=== PATIENT | male | born 2000 | race Caucasian/White ===

== ENCOUNTER 2024-04-18 21:19 | Emergency (ER) | payer SELFPAY ==
[2024-04-18] MEDS: Sodium Chloride 0.9% 2.5 ML Syringe FLUSH PRN (21:39)
[2024-04-18] MEDS: Sodium Chloride 0.9% 1,000 ML IV ONE ×2 (21:39→22:43)
[2024-04-18] MEDS: Sodium Chloride 0.9% 10 ML Syringe FLUSH PRN (21:40)
[2024-04-18 21:41] LABS: BASOPHILS ABSOLUTE AUTO 0.08 K/uL (0.00-0.20); BASOPHILS PERCENT AUTO 0.6 % (0.0-1.0); EOSINOPHILS ABSOLUTE AUTO 0.11 K/uL (0.00-0.45); EOSINOPHILS PERCENT AUTO 0.8 % (0.0-6.0); HEMATOCRIT 44.3 % (42.0-52.0); HEMOGLOBIN 15.5 g/dL (14.0-18.0); IMMATURE GRAN ABSOLUTE AUTO 0.14 K/uL (0.00-0.05); IMMATURE GRAN PERCENT AUTO 1.1 % (0.0-0.4); LYMPHOCYTES ABSOLUTE AUTO 2.79 K/uL (1.00-4.80); LYMPHOCYTES PERCENT AUTO 21.1 % (24.0-44.0); MEAN CORPUSCULAR HEMOGLOBIN 30.2 pg (28.0-32.0); MEAN CORPUSCULAR VOLUME 86.2 fL (83.0-99.0); MONOCYTES PERCENT AUTO 5.3 % (0.0-8.0); NEUTROPHILS ABSOLUTE AUTO 9.42 K/uL (1.80-7.70); NEUTROPHILS PERCENT AUTO 71.1 % (41.0-71.0); PLATELET COUNT,PLT 395 K/uL (150-400); RED BLOOD CELL COUNT 5.14 M/uL (4.52-5.90); WHITE BLOOD CELL COUNT,WBC 13.24 K/uL (3.9-11.3)
[2024-04-18 22:03] LABS: A/G RATIO 1.3 (0.9-1.6); ALANINE AMINOTRANSFERASE,ALT 22 IU/L (14-63); ALBUMIN 4.8 g/dL (3.4-5.0); ALKALINE PHOSPHATASE 103 U/L (46-116); ASPARTATE AMNIOTRANSFERASE,AST 23 IU/L (15-37); BILIRUBIN TOTAL 0.5 mg/dL (0.2-1.0); BLOOD UREA NITROGEN,BUN 15 mg/dL (7.0-18.0); CALCIUM 10.1 mg/dL (8.5-10.1); CHLORIDE,CL 101 mmol/L (98-107); CREATININE 1.1 mg/dL (0.8-1.3); GLUCOSE RANDOM 126 mg/dL (74-106); POTASSIUM,K 3.1 mmol/L (3.5-5.1); PROTEIN TOTAL,TP 8.6 g/dL (6.4-8.2); SODIUM,NA 139 mmol/L (136-148)
[2024-04-18] MEDS: Morphine 4 MG/ML Syringe IVPUSH ONE ×2 (22:48→23:22)
[2024-04-18 22:54] LABS: APPEARANCE,URINE CLEAR; BILIRUBIN,URINE NEGATIVE (NEGATIVE); COLOR,URINE YELLOW; GLUCOSE,URINE NEGATIVE (NEGATIVE); KETONES,URINE NEGATIVE (NEGATIVE); LEUKOCYTE ESTERASE,URINE NEGATIVE (NEGATIVE); NITRITE,URINE NEGATIVE (NEGATIVE); OCCULT BLOOD,URINE NEGATIVE (NEGATIVE); PROTEIN,URINE NEGATIVE (NEGATIVE); UROBILINOGEN,URINE 0.2 EU/dL (<2.0)
[2024-04-18 22:56] LABS: ESTIMATED GFR 95 mL/min (>60)
[2024-04-18] MEDS: Iopamidol 755 MG/ML 500 ML Multipack Bottle IVPUSH ONE (22:56)
[2024-04-19] MEDS: Lidocaine 2% 5 ML SDV INJECT ONE (01:17)
[2024-04-19] MEDS: Bacitracin Oint 1 GM U/D Packet TOP ONE (03:56)
== END 2024-04-19 04:10 | disposition home or self-care (01) ==
LOC: MW.ED 21:19
DX: S61.213A Laceration without foreign body of left middle finger without damage to nail, initial encounter (principal); S00.03XA Contusion of scalp, initial encounter; V86.65XA Passenger of 3- or 4- wheeled all-terrain vehicle (ATV) injured in nontraffic accident, initial encounter
CPT/HCPCS: 12002; 36415; 70450; 71045; 71260; 72125; 73130; 74177; 80053; 81003; 85025; 96374; 99284; J2270; J3490; J7030; Q9967